=== PATIENT | female | born 1945 | race Caucasian/White ===

== ENCOUNTER 2017-10-11 05:55 | Day surgery (SDC) | payer OTHER ==
[~2017-10-11] VITALS: Ht 162.6 cm; Wt 94.0 kg
[~2017-10-11 05:55] MED LIST: ASPIR-LOW81 MG PO; B COMPLETE1 EACH PO; BENADRYL ALLERG25 MG PO; CENTRUM SILVER1 EAC4 PO; CLONAZEPAM0.5 MG PO; DIPROSONE 0.05%15 G1 TP; DITROPAN XL5 MG PO; FLORASTOR250 MG PO; FOSTEUM CAPSUL1 EACH PO; GLUCOSAMINE R1000 MG PO; HYZAAR 50-121 TABLET PO; IMODIUM A-D2 M2 PO; KETOCONAZOLE60 GM TP; PRAVASTATIN SOD80 MG PO; REMIFEMIN PO; VAGIFEM10 MCG VG; VICODIN 5-3001 EACH PO; VITAMIN C1000 MG PO; VITAMIN D31000 UNIT PO
[2017-10-11 06:55] VITALS: BP 128/74
[2017-10-11 15:59] VITALS: BP 120/63
[2017-10-11 20:32] VITALS: BP 101/57
[2017-10-11 23:11] VITALS: BP 109/59
[2017-10-12 03:52] VITALS: BP 127/79
[2017-10-12 08:41] VITALS: BP 125/63
[2017-10-12] MEDS ORDERED: OXYCODONE HCL5 MG PO (09:04)
[2017-10-12 11:57] VITALS: BP 127/69
== END 2017-10-12 12:37 | disposition home or self-care (01) ==
LOC: SDC 05:55 → 3EAST 09:20 → 2SOUTH 09:20 → 3EAST 09:20 → 2SOUTH 09:20 → CANRESERV 09:47 → ENRESERV 09:47 → SDC 10:58 → 3EAST 11:23 → SDC 16:19 → 3EAST 10-12 12:37
PROC: 0RRK0J6 Replacement of Left Shoulder Joint with Synthetic Substitute, Humeral Surface, Open Approach (ICD-10-PCS; principal; 2017-10-11)
DX: M19.012 Primary osteoarthritis, left shoulder (principal); M25.512 Pain in left shoulder; G25.81 Restless legs syndrome; M85.80 Other specified disorders of bone density and structure, unspecified site; D64.9 Anemia, unspecified; E07.9 Disorder of thyroid, unspecified; L30.9 Dermatitis, unspecified; K59.09 Other constipation; F32.9 Major depressive disorder, single episode, unspecified; Z96.642 Presence of left artificial hip joint; Z87.891 Personal history of nicotine dependence; Z88.0 Allergy status to penicillin; Z88.5 Allergy status to narcotic agent; Z88.8 Allergy status to other drugs, medicaments and biological substances; Z88.6 Allergy status to analgesic agent; Z82.61 Family history of arthritis; Z82.49 Family history of ischemic heart disease and other diseases of the circulatory system
CPT/HCPCS: 94799; G0378; J0131; J0330; J0690; J1100; J1170; J1885; J2250; J2405; J2765; J2795; J7030; J7050; Q0175

== ENCOUNTER 2017-12-24 18:03 | Emergency (ER) | payer OTHER ==
[~2017-12-24] VITALS: Ht 162.6 cm; Wt 72.7 kg
[~2017-12-24 18:03] MED LIST changes: +OXYCODONE HCL5 MG PO
[2017-12-24 21:00] LABS: HEMATOCRIT 38.1 % (36.0-46.0); HEMOGLOBIN 13.8 G/DL (11.9-15.5); MCH 33.7 PG (29.0-34.0); MCHC 36.2 G/DL (30.0-36.0); MCV 93.2 FL (83-99); PLATELET COUNT 184 K/uL (156-360); RBC DIS.WIDTH-CV 12.8 % (11.8-14.6); RBC DIS.WIDTH-SD 43.6 % (39-53); RED BLOOD COUNT 4.09 M/uL (3.80-5.20); WHITE BLOOD COUNT 8.8 K/uL (4.1-10.2)
[2017-12-24 21:10] LABS: ALBUMIN 4.1 g/dL (3.2-4.8); CHLORIDE 93 mEq/L (99-109); POTASSIUM 3.5 mEq/L (3.7-5.4); SODIUM 131 mEq/L (136-147)
[2017-12-24 21:12] LABS: GLUCOSE 118 mg/dL (70-99)
[2017-12-24 21:13] LABS: TOTAL PROTEIN 7.1 g/dL (6.4-8.3)
[2017-12-24 21:14] LABS: TOTAL BILIRUBIN 1.2 mg/dL (0.0-1.0)
[2017-12-24 21:16] LABS: ALKALINE PHOSPHATASE 65 IU/L (3-129); CREATININE 0.7 mg/dL (0.6-1.3); GFR ESTIMATE (CALCULATED) > 59 mL/min/
[2017-12-24 21:17] LABS: UREA NITROGEN (BUN) 10 mg/dL (9-23)
[2017-12-24 21:18] LABS: AST (GOT) 60 IU/L (2-34)
[2017-12-24 21:19] LABS: ALT (GPT) 57 IU/L (3-49)
[2017-12-24] MEDS ORDERED: OXAYDO5 MG PO (21:41)
[2017-12-24 22:07] VITALS: BP 137/88
== END 2017-12-24 22:23 | disposition home or self-care (01) ==
LOC: EXP 18:03 → EME 18:03 → EXP 22:23
PROVIDERS: Physician Assistant
PROC: 2W39X1Z Immobilization of Left Upper Extremity using Splint (ICD-10-PCS; principal; 2017-12-24)
DX: S42.215A Unspecified nondisplaced fracture of surgical neck of left humerus, initial encounter for closed fracture (principal); S00.83XA Contusion of other part of head, initial encounter; S50.10XA Contusion of unspecified forearm, initial encounter; S80.00XA Contusion of unspecified knee, initial encounter; S73.102A Unspecified sprain of left hip, initial encounter; W01.0XXA Fall on same level from slipping, tripping and stumbling without subsequent striking against object, initial encounter; Y92.480 Sidewalk as the place of occurrence of the external cause; K21.9 Gastro-esophageal reflux disease without esophagitis; F32.9 Major depressive disorder, single episode, unspecified; Z87.891 Personal history of nicotine dependence; Z96.643 Presence of artificial hip joint, bilateral; Z88.0 Allergy status to penicillin; Z88.5 Allergy status to narcotic agent; Z88.8 Allergy status to other drugs, medicaments and biological substances
CPT/HCPCS: 70450; 70486; 72125; 73030; 73060; 73090; 73502; 73564; 73610; 80053; 81003; 85027; 99281; 99284